=== PATIENT | male | born 1970 | race Caucasian/White ===

== ENCOUNTER 2024-06-15 22:47 | Emergency (ER) | payer OTHER, SELFPAY ==
[2024-06-15 22:53] VITALS: BP 161/96
[2024-06-15 23:03] VITALS: BP 157/92
[2024-06-15 23:08] VITALS: BMI 36.6
[2024-06-15 23:37] LABS: % Basophils 0.6 % (0-2); % Eosinophils 1.7 % (0-6); % Immature Granulocytes 0.5 % (0-0.5); % Lymphocytes 28.8 % (20.5-51.1); % Monocytes 6.8 % (1.7-9.3); % Neutrophils 61.6 % (42.2-75.2); Absolute Eosinophils 0.1 10^3/uL (0-0.7); Absolute Lymphocytes 1.8 10^3/uL (1.2-3.4); Absolute Monocytes 0.4 10^3/uL (0.1-0.6); Absolute Neutrophils 3.9 10^3/uL (1.4-6.5); Hematocrit 35.6 % (39.0-52.0); Hemoglobin 12.1 g/dL (13.0-18.0); Mean Corpuscular Hgb 28.2 pg (27.0-31.0); Mean Platelet Volume 11.7 fL (7.4-10.4); Nucleated Red Blood Cells % 0 % (-); Platelet Count 149 10^3/uL (130-400); Red Blood Cell Count 4.29 10^6/uL (4.70-6.10); Red Cell Dist. Width 14.3 % (11.5-14.5); White Blood Cell Count 6.4 10^3/uL (4.8-10.8)
[2024-06-15] MEDS: ZOFRAN 4 MG IV (23:39)
[2024-06-15] MEDS: LOW STRENGTH ASPIRIN 81 MG PO (23:39)
[2024-06-15] MEDS: TYLENOL 650 MG PO (23:39)
--- NOTE | 2024-06-15 23:40 | ED.GENMED ---
History of Present Illness
General
Chief Complaint: Chest Pain
Source: patient
Exam Limitations: none
Time Seen by Provider: 06/15/24 23:15
Nursing documentation reviewed up to this point in time: agreed with
History of Present Illness
History of Present Illness:
pt is a 53 y/o M with h/o DM on monjaro and metformin, HTN, hld, occ smoker
here with chest pain that started lastnigth after unknown family stressful event. pt wishes not to disclose what happened
he says he started feeling pressure/heaviness and pain into his L arm as well as a headache
he didn't sleep well and then was tired today and took a few naps
he says that he feels a lttle sob this evening
he has not had exertional pain, vomiing, severe pain through to back
has seen cards years ago; no stents; doesn't follow with cards now
feeling nauseated
has anxiety, on meds;
thinks this could be stress;
Past History
Past History
ED Past Medical History: HTN
ED Past Surgical History: None
Patient has exhibited threatening behavior?: No
Social History
Tobacco: Non-smoker
Personal:
Living: with family
Employment: Employed
Family History
Family History: Unable to obtain
Phy Exam
Physical Exam
Physical Exam:
GENERAL: Alert , in no apparent distress, ANXIOUS
EYE: pupils equal and reactive
NECK: Supple
ENT: o/p clr, mmm.
CARDIAC: Regular rate and rhythm . regular, no murmur
LUNGS: Clear breath sounds bilaterally, no acute respiratory distress, no wheezes/rales/rhonchi
ABDOMEN: Soft, obese, nontender without focal tenderness, no r/g, no cvat, normal bowel sounds
NEUROLOGICAL: Alert and oriented, no focal neuro deficits
SKIN: Warm and dry, skin intact.
MUSCULOSKELETAL: No edema, well perfused. neg hema's sign
PSYCH: Normal and appropriate interaction.
Scores
Heart Score for Chest Pain Patients
STEMI patient?: No
History: Slightly or Non-Suspicious
ECG: Nonspecific Repolarization
Age: >45 - <65 years
Risk Factors: >/= 3 Risk Factors or History of CAD
Troponin: </= Normal Limit
Heart Score for Chest Pain Patients: 4
Heart Score Risk: 20.3% MACE over next 6 weeks
Course
Orders/Labs/Results
Orders:
Orders
06/15/24 22:49
Electrocardiogram (*1) Urgent
Reason for Study: Chest Pain
EKG- Treatment ONCE
06/15/24 23:15
Acetaminophen [Tylenol] 650 mg PO NOW STA
Aspirin Chewable [Low Strength Aspirin] 81 mg PO NOW STA
Ondansetron Injectable [Zofran] 4 mg IV NOW STA
CR Chest - 2 Views Urgent
Comment:
Reason For Exam: chset pain
06/15/24 23:25
Complete Blood Count/With Diff Urgent
Comprehensive Metabolic Panel Urgent
Lipase Urgent
Troponin I Urgent
06/16/24 00:32
EKG- Treatment ONCE
06/16/24 02:02
Troponin I Urgent
06/16/24 02:30
Electrocardiogram (*1) Urgent
Reason for Study: Chest Pain
Abnormal Lab Results
06/15/24
23:25
RBC 4.29 L 10^6/uL
(4.70-6.10)
Hgb 12.1 L g/dL
(13.0-18.0)
Hct 35.6 L %
(39.0-52.0)
MPV 11.7 H fL
(7.4-10.4)
Sodium 134 L mmol/L
(135-145)
Glucose 162 H mg/dl
(70-99)
06/15/24 23:25
06/15/24 23:25
Vital Signs
Initial and Last Documented VS:
Initial Vital Signs
Temp Pulse Resp BP Pulse Ox
36.8 C 86 22 161/96 98
06/15/24 22:53 06/15/24 22:53 06/15/24 22:53 06/15/24 22:53 06/15/24 22:53
Last Documented Vital Signs
Temp Pulse Resp BP Pulse Ox
36.8 C 86 16 131/86 96
06/15/24 22:53 06/16/24 00:30 06/16/24 00:30 06/16/24 00:00 06/16/24 00:30
MDM/Problems Addressed
Differential Diagnosis Includes:
CHESTP AIN, ACS, ANXETIY, GERD
MDM/Problems Addressed:
53 yo M
herewith HTN, NIDDM
ches tpain since last night after very stressful family event which pt did not wish to disclose
into left arm, felt alittle sob, and has a headache
didn't sleep well
symptms ongoing since last night
worse this evening
he has not had any syncope, vomtiing, sweatiness
no PE rf
no h/o ACS
hasn't seen cardiology in years
on exam normal ekg
seems to be stressed/anxiuos
neuro intact
unremarkable exam otherwise
1st trop neg
since ongoin sxs, will repeat
cxr neg indep reviewed
bp improved
headache and cp down to 04/07
plan on cp hotline due to heart score
ED Attending Note
-
Portions of this chart may have been created with voice recognition software.� Occasional wrong word or��sound alike� substitutions may have occurred due to the inherent limitations of voice recognition software.
Discharge Plan
Departure
Patient with high blood pressure during this ER visit?: No
Condition: Fair
Covid-19: Not Applicable
Discharge Problem:
Chest pain
Instructions: Chest Pain DCA Follow Up
Prescriptions:
No Action
enalapril maleate 5 MG tablet
5 mg PO DAILY
Patient Comments:
pt states he doesn't take daily, just takes when he needs it.
levofloxacin 500 MG tablet
500 mg PO DAILY 7 Days 0RF
Referrals:
Anahi Aguilar, [Family Provider] - Follow up in 2-3 days
Activity Restrictions/Additional Instructions:
YOU HAD 2 NEGATIVE TROPONIN ENZYMES RULING OUT HEART ATTACK
YOU PROBABLY HAD A REACTION FROM STRESS CAUSING SYMPTOMS
YOU SHOULD CONTINUE YOUR CHRONIC MEDICATIONS
YOU SHOULD BE RECEIVING A PHONE CALL FROM [employer] TO GET YOU AN APPOINTMENT
RETURN FOR ANY CONCERNS: WORSENING PAIN, TROUBLE BREATHING, PASSING OUT, VOMITING, FEVER ETC
Interventions
Interventions:
*Risk Screen - Suicide Last Done: 06/15/24 22:53
*General Assessment Last Done: 06/15/24 23:02
*Neglect/Abuse Screening Last Done: 06/15/24 22:53
*ED- Fall Risk Assessment Last Done: 06/15/24 22:56
*ED COVID-19 Vaccine History Last Done: 06/15/24 22:56
ED- Cardiac Assessment Last Done: 06/15/24 23:02
Discharge Date and Time
Print Language: MONGOLIAN
[2024-06-15 23:42] VITALS: BP 136/85
[2024-06-15 23:56] LABS: Troponin I < 0.012 ng/ml
[2024-06-16] VITALS: BP 131/86
[2024-06-16 00:01] LABS: ALT (SGPT) 36 U/L (0-50); Albumin 4.2 g/dl (3.5-5.0); Blood Urea Nitrogen 15 mg/dl (9-20); Calcium 9.4 mg/dl (8.4-10.2); Carbon Dioxide 25 mmol/L (22-30); Chloride 101 mmol/L (98-107); Estimated Creatinine Clearance > 125 ml/min; Glucose 162 mg/dl (70-99); Lipase 148 U/L (23-300); Sodium 134 mmol/L (135-145); Total Bilirubin 0.6 mg/dl (0.2-1.3); Total Protein 6.8 g/dl (6.3-8.2); eGFR > 60.00
[2024-06-16 00:15] LABS: AST (SGOT) 25 U/L (17-59); Alkaline Phosphatase 47 U/L (38-126); Potassium 3.6 mmol/L (3.5-5.1)
[2024-06-16 01:00] VITALS: BP 136/85
[2024-06-16 02:00] VITALS: BP 130/80
[2024-06-16 02:36] LABS: Troponin I < 0.012 ng/ml
[2024-06-16 02:46] VITALS: BP 131/87
== END 2024-06-16 02:50 | disposition home or self-care (01) ==
LOC: EMR 22:47
PROVIDERS: Physician Assistant; EMERGENCY PHYSICIAN Student in an Organized Health Care Education/Training Program; FAMILY PHYSICIAN Family Medicine
DX: R07.89 Other chest pain (principal); E11.9 Type 2 diabetes mellitus without complications; I10 Essential (primary) hypertension; E78.00 Pure hypercholesterolemia, unspecified; F41.9 Anxiety disorder, unspecified; I25.10 Atherosclerotic heart disease of native coronary artery without angina pectoris
CPT/HCPCS: 99283; 71046; 80053; 83690; 84484; 85025; 93005

== ENCOUNTER 2024-08-25 22:09 | Emergency (ER) | payer OTHER, SELFPAY ==
[2024-08-25 22:12] VITALS: BP 162/109
[2024-08-26] MEDS: TORADOL 60 MG IM (00:21)
--- NOTE | 2024-08-26 02:18 | ED.GENMED ---
History of Present Illness
General
Chief Complaint: Musculo-Skeletal Complaint
Source: patient and previous hospital records (ED visit May of this year where patient presented with chest pain radiating to left arm. Unremarkable cardiac workup.)
Exam Limitations: none
Time Seen by Provider: 08/26/24 02:04
Nursing documentation reviewed up to this point in time: agreed with
History of Present Illness
History of Present Illness:
This is a 53-year-old obese gentleman with history of hypertension, uth-nvafxyo-vrqreohse diabetes. He presents with several week history of left posterior shoulder to left lateral neck pain. No insightful injury but admits the pain is much worse
with rotation of his neck, worse with movement of his shoulder, worse at nighttime with difficulty sleeping. He denies chest pain, no coughing or shortness of breath. He does admit to occasional tingling of his fingers of his left hand, no
weakness nor numbness. No rash, no fever no chills.
He called his PCP 2 days ago and was called in Celebrex 200 mg to be taken twice daily. He does admit to initial moderate improvement but tonight increased pain and difficulty sleeping. Pain is worse when he stands, worse with movement of his left
shoulder, worse with rotation of his neck.
Past History
Past History
ED Past Medical History: HTN, Hypercholesterolemia, NIDDM and Psychiatric (Anxiety)
ED Past Surgical History: None
Patient has exhibited threatening behavior?: No
Social History
Tobacco: Non-smoker
Personal:
Living: with family
Employment: Employed
Family History
Family History: Diabetes
Phy Exam
Physical Exam
Physical Exam:
GENERAL: 53-year-old obese gentleman appears his stated age, awake and alert, appears in mild distress, somewhat resistant to move/reposition due to pain left posterior shoulder, left lateral neck.
EYE: pupils equal and reactive. anicteric
NECK: Supple, no midline bony tenderness, mild tenderness left paracervical musculature as well as moderate tenderness left superior trapezius muscle, no meningismus, no significant adenopathy. Mildly restricted range of motion related to pain.
ENT: posterior pharynx is clear, oral mucosa is moist. No rhinorrhea.
CARDIAC: Regular rate and rhythm. no murmur. No chest wall tenderness.
LUNGS: Clear breath sounds bilaterally, no acute respiratory distress, no wheezes/rales/rhonchi
ABDOMEN: Soft, nondistended, without focal tenderness
NEUROLOGICAL: Alert and oriented x3, no focal neuro deficits. Gait is steady.
SKIN: Warm and dry, normal color, skin intact. No rash.
MUSCULOSKELETAL: No C/C/E. peripheral pulses are full and equal b/l. Moderate tenderness about the left shoulder, mildly restricted range of motion with increased pain with abduction greater than 90 degrees. No crepitus.
PSYCH: Normal and appropriate interaction.
Course
Orders/Labs/Results
Orders:
Orders
08/25/24 22:14
ECG [Electrocardiogram (*1)] Urgent
Reason for Study: Other
Other Reason for Exam: shoulder pain
EKG- Treatment ONCE
08/26/24 00:19
Shoulder, Left, Trauma CR [CR Shoulder, Trauma - Left] Urgent
Comment:
Reason For Exam: L shoulder pain
08/26/24 00:20
Ketorolac [Toradol] 60 mg IM NOW STA
08/26/24 02:17
diazePAM [Valium Injection] 10 mg IM NOW STA
08/26/24 02:44
BMP [Basic Metabolic Panel] Urgent
08/26/24 03:24
Enalapril [Vasotec] 10 mg PO NOW STA
Abnormal Lab Results
08/26/24 08/26/24
02:37 02:44
Glucose 469 H* mg/dl
(70-99)
POC Glucose 457 H* mg/dl
(70-99)
08/26/24 02:44
Vital Signs
Initial and Last Documented VS:
Initial Vital Signs
Temp Pulse Resp BP Pulse Ox
98.2 F 94 20 162/109 97
08/25/24 22:12 08/25/24 22:12 08/25/24 22:12 08/25/24 22:12 08/25/24 22:12
Last Documented Vital Signs
Temp Pulse Resp BP Pulse Ox
98.2 F 82 20 166/93 99
08/25/24 22:12 08/26/24 04:50 08/26/24 04:50 08/26/24 03:35 08/26/24 04:50
MDM/Problems Addressed
Differential Diagnosis Includes:
Patient presents with several week history of left shoulder pain rating to left lateral neck appears musculoskeletal in nature.
I suspect trapezius mild fasciitis, there may be an element of cervical radiculopathy but no focal neurodeficits on exam.
Afebrile. Nothing to suggest meningismus.
Mild improvement with Celebrex.
Will give an IM dose of Valium for muscle spasm.
Left shoulder x-rays unremarkable.
MDM/Problems Addressed:
Patient with history of hypertension. Noted to be moderately hypertensive I suspect related to pain. He admits that he may have not taken his enalapril today. He also admits that he has not taken Mounjaro in at least the past 2 weeks. Will give
his usual dose of enalapril 10 mg now. Will give an IM dose of Valium, plan to reassess.
Patient with history of diabetes. [id number]. Maintained on Mounjaro and metformin. He requests his blood sugar to be checked, Accu-Chek reads high.
Random blood sugar 2 months ago 162.
He admits that he has not taken his Mounjaro in at least the past 2 weeks. Reports being compliant with metformin.
Will check BMP.
Chronic conditions affecting care: DM and HTN
*Radiology
Radiology exam reviewed: preliminary read by ED provider (Shoulder x-rays unremarkable.)
*Pulse Oximetry
Patient hypoxic: no
*EKG
Interpreted by ED Provider?: Yes
Interpretation: abnormal
Comparison EKG: no changes (Unchanged from previous May 2024)
Rate: normal
Rhythm: sinus
[place]: normal axis
Interval: normal interval
QRS Pattern: normal QRS
Ischemia: other (Old inferior Q waves, similar and unchanged from previous May 2024)
*[employer] Interpretation
Rate: normal
Interpretation: normal
Rhythm: sinus
*Critical Care Note
Total Time (30-74mins, 75-104mins- exclusive of procedures): Not Applicable
Update Note
Update Note:
04:40
Patient feeling markedly improved. Resting comfortably. Hypertension improving.
Blood sugar markedly elevated at 469 but normal electrolytes without acidosis.
Recommend he resume his diabetes medicines as well as antihypertensives. Monitor blood sugar at least once per day at home.
Recommend he continue Celebrex 200 mg twice daily.
Will add a short course of Flexeril for as needed muscle spasm as well as a small prescription for tramadol for as needed moderate pain. Due to elevated glucose will avoid steroids.
Recommend prompt follow-up with PCP for recheck.
ED Attending Note
-
Portions of this chart may have been created with voice recognition software.� Occasional wrong word or��sound alike� substitutions may have occurred due to the inherent limitations of voice recognition software.
Discharge Plan
Departure
Patient Disposition: Home (Routine Discharge)
Date of Disposition: 08/26/24
Time of Disposition: 04:39
Patient with high blood pressure during this ER visit?: No
Condition: Good
Discharge Problem:
left trapezius myofasciitis, Poorly controlled type 2 diabetes mellitus
Instructions: Neck pain - ED discharge instructions
Prescriptions:
New
cyclobenzaprine 10 mg tablet
10 mg PO TIDPRN PRN (Reason: muscle spasm) Qty: 20 0RF
tramadol 50 mg tablet
50 mg PO TIDPRN PRN (Reason: moderate pain) Qty: 10 0RF
No Action
enalapril maleate 5 MG tablet
5 mg PO DAILY
Patient Comments:
pt states he doesn't take daily, just takes when he needs it.
levofloxacin 500 MG tablet
500 mg PO DAILY 7 Days 0RF
Referrals:
Ester Luu NP [Family Provider, Family Practice] - Follow up in 2-3 days
Interventions
Interventions:
*Risk Screen - Suicide Last Done: 08/25/24 22:56
*General Assessment Last Done: 08/25/24 22:12
*Neglect/Abuse Screening Last Done: 08/25/24 22:56
*ED- Fall Risk Assessment Last Done: 08/26/24 04:50
*ED COVID-19 Vaccine History Last Done: 08/25/24 22:56
*Nursing Disposition Last Done: 08/26/24 04:50
ED-Musculoskeletal Assessment Last Done: 08/25/24 22:56
Discharge Date and Time
Discharge Date/Time: 08/26/24 04:51
Print Language: BULGARIAN
[2024-08-26] MEDS: VALIUM INJECTION 10 MG IM (02:20)
[2024-08-26 02:25] VITALS: BMI 37.2
[2024-08-26 02:29] VITALS: BP 171/95
[2024-08-26 02:39] LABS: Glucose - Point of Care 457 mg/dl (70-99)
[2024-08-26 03:27] LABS: Blood Urea Nitrogen 14 mg/dl (9-20); Calcium 9.1 mg/dl (8.4-10.2); Carbon Dioxide 25 mmol/L (22-30); Chloride 103 mmol/L (98-107); Estimated Creatinine Clearance > 125 ml/min; Glucose 469 mg/dl (70-99); Potassium 4.4 mmol/L (3.5-5.1); Sodium 136 mmol/L (135-145); eGFR > 60.00
[2024-08-26 03:35] VITALS: BP 166/93
[2024-08-26] MEDS: VASOTEC 10 MG PO (03:35)
== END 2024-08-26 04:51 | disposition home or self-care (01) ==
LOC: EMR 22:09
PROVIDERS: EMERGENCY PHYSICIAN Emergency Medicine; FAMILY PHYSICIAN Nurse Practitioner Family
DX: M60.9 Myositis, unspecified (principal); E11.65 Type 2 diabetes mellitus with hyperglycemia; I10 Essential (primary) hypertension; Z79.899 Other long term (current) drug therapy
CPT/HCPCS: 99285; 96372 ×2; 73030; 80048; 82962; 93005